=== PATIENT | male | born 1965 | race African-American/Black ===

== ENCOUNTER 2018-10-03 23:01 | Emergency (ER) | payer MEDICAID ==
[~2018-10-03] VITALS: Ht 170.2 cm; Wt 113.0 kg
[2018-10-04] MEDS ORDERED: BACITRACIN ZINC OINT UDPKT TOP ONE (00:45)
[2018-10-04] MEDS ORDERED: IBUPROFEN 600MG TABLET PO STA (01:00)
[2018-10-04 03:06] VITALS: BP 146/89
== END 2018-10-04 03:11 | disposition home or self-care (01) ==
LOC: ER 23:01
DX: S91.211A Laceration without foreign body of right great toe with damage to nail, initial encounter (principal); W25.XXXA Contact with sharp glass, initial encounter; Y93.89 Activity, other specified; Y92.89 Other specified places as the place of occurrence of the external cause
CPT/HCPCS: 73630; 99283; Z7610